=== PATIENT | male | born 1995 | race Caucasian/White ===

== ENCOUNTER 2021-03-18 16:15 | Day surgery (SDC) | payer BC, OTHER, SELFPAY ==
--- NOTE | ~2021-03-18 | FL_ITS ---
EXAMINATION: XR FLUOROSCOPY WITH IMAGES CLINICAL INFORMATION: Kidney stones. COMPARISON: None. TECHNIQUE: Fluoroscopy performed by Dr. Paco Lopez. Fluoroscopy time: 46 seconds DAP: 6.30 mGycm2 Images: 2 FINDINGS: There is contrast opacifying the left kidney pelvis and some of the midpole calyces. Subsequent image reveals a left internal ureteral stent with its tip in the kidney pelvis. FL/FL guidance in OR IMPRESSION: There is retrograde opacification of kidney pelvis with subsequent insertion of left internal ureteral stent. The proximal end of the stent appears to be in the kidney pelvis. The distal end is not in the [id number].
[2021-03-18 16:46] VITALS: BP 134/99; PULSE 93; RESP 16; TEMP 36.5; O2SAT 99
[2021-03-18 16:57] VITALS: BMI 17.0
--- NOTE | 2021-03-18 17:41 | MHC.SHP ---
Pre-Procedural Eval Section B Chief Complaint: Presence of urogenital implants Details of Present Illness: right flank pain. Imaging with right hydronephrosis. prior imaging with mild hydronephrosis. Relevant Family History (Specify if Yes): No Relevant Social History: None Present Medications: None Medical History: No relevant PMH History of Previous Operations: No relevant previous surgery Allergies: Allergies Allergy/AdvReac Type Severity Reaction Status Date / Time No Known Allergies Allergy Verified 03/18/21 17:02 Review of Systems Sugical H&P ROS: Negative: Constitution, Cardiovascular, Respiratory, Neurological, Psychiatric, Hem-Onc, Allergic/Immunologic, Gastrointestinal, Genitourinary, Musculoskeletal, Integumentary, Endocrine and Eyes/Ears/Nose/Throat Exam Surgical H&P Exam: Normal: HEENT, Normal: Heart, Normal: Lungs, Normal: Extremities, Normal: Abdomen, Normal: Skin and Normal: Neurological Plan Diagnosis/Plan: Unchanged ( Cystoscopy, right retrograde, right stent placement) I have reviewed the history and physical and performed a pertinent physical examination on my patient. No changes have occurred unless specified.
[2021-03-18] MEDS: levoFLOXacin 500 MG TABLET PO (18:07)
--- NOTE | 2021-03-18 20:43 | P.CONAN_ITS ---
[facility] Active Problems Active Problems: All Active Problems (Updated 03/18/21 @ 16:58 by Leila Bell RN) Hydroureteronephrosis (Acute) Past Medical History Medical History Anxiety Social History Social History Patient Tobacco Use Status: Never used Tobacco Use of substances other than those prescribed or required for medical reasons: No Are you DNR?: No Advance Directives: No Advance Directives Information Provided: No Advance Directives on File: No Recently lost weight without trying: No Meds Allergies Allergy/AdvReac Type Severity Reaction Status Date / Time No Known Allergies Allergy Verified 03/18/21 17:02 Home Medications Medication Instructions Recorded Confirmed Last Taken Type escitalopram oxalate 1 tab PO DAILY 03/18/21 03/18/21 03/11/21 History Exam Exam Date and Time: March 18, 20212042 Height,Weight and Vital Signs: Height 6 ft 4 in Weight 63.503 kg Last Vital Signs Temp 97.7 F 03/18/21 16:46 Pulse 93 03/18/21 16:46 Resp 16 03/18/21 16:46 BP 134/99 H 03/18/21 16:46 Pulse Ox 99 03/18/21 16:46 Airway Mallampati Class: II TM Dist: >3cm Neck ROM: Full
--- NOTE | 2021-03-18 21:21 | W.PM.OPN ---
Operative Note Operative Note Date of Service: 03/18/21 Narrative: PreOperative Diagnosis: right hydronephrosis Post Operative Diagnosis: right hydronephrosis possible UPJ obstruction Procedure: cystoscopy with right retrograde and right stent placement Surgeon: Dr Paco Lopez Anesthesia: sedation Indications for procedure: hydronephrosis found on imaging. Occasional flank discomfort. Recommend stent placement in order to assess relative renal function. Procedure: After informed consent was verified the patient was brought to the operating room and placed in a supine position. anesthesia was administered per protocol. Patient was placed in a modified dorsal lithotomy position after use prepped draped in a sterile fashion. Safety pause time-out was performed. Antibiotics being given. Twenty-two Yemeni cystoscope was inserted. Right retrograde office cannulated and retrograde examination performed. Appeared to be deviation of the proximal portion of the right ureter with a corkscrew before entering a dilated collecting system. A sensor guidewire was navigated into the collecting system and the redundant ureter was straightened. A 6 [place]i by 28 cm double-J catheter was easily placed and good coil seen within the renal pelvis in the bladder. He tolerated procedure well was transferred in stable condition to the recovery area. Pathology: None Drains: 6 Yemeni by 22 cm stent
[2021-03-18 21:28] VITALS: BP 121/68; PULSE 72; RESP 15; TEMP 36.5; O2SAT 97
[2021-03-18 21:33] VITALS: BP 124/77; PULSE 69; RESP 17; O2SAT 94
[2021-03-18] MEDS: Phenazopyridine HCL 100 MG TABLET PO (21:40)
[2021-03-18 21:43] VITALS: BP 125/85; PULSE 81; RESP 16; TEMP 36.3; O2SAT 98
[2021-03-18 21:55] VITALS: BP 123/81; PULSE 70; RESP 15; O2SAT 99
== END 2021-03-18 22:13 | disposition home or self-care (01) ==
PROVIDERS: PCP Internal Medicine; Visit Provider Urology
PROC: (CPT 52332; principal; 2021-03-18 18:20)
DX: N13.30 Unspecified hydronephrosis (principal); R10.9 Unspecified abdominal pain; Z79.899 Other long term (current) drug therapy
CPT/HCPCS: 52332; C1758; C1769; C2617; J1100; J1885; J2250; J3010; Q9967

== ENCOUNTER → 2021-04-09 12:54 | Outpatient (REF) | payer BC, OTHER, SELFPAY ==
--- NOTE | ~2021-04-09 | NM_ITS ---
EXAMINATION: RENAL DYNAMIC IMAGING STUDY WITH LASIX CLINICAL INFORMATION: Hydronephrosis. COMPARISON: No previous study is available for comparison. TECHNIQUE: Serial gamma scintillation camera images were obtained over the posterior trunk during the initial transit and subsequent distribution of a bolus intravenous injection of 10 mCi of Tc-99m DTPA. At 30 minutes later, 34 mg of Lasix was administered intravenously and an additional 30 minutes of images obtained. FINDINGS: Initial rapid sequence images show prompt perfusion to the left kidney but mildly diminished perfusion to the right kidney which is significantly smaller than the left. On the flow images, left kidney is not well from the immediately adjacent spleen. Subsequent sequential static images obtained up to 30 minutes show concentration and the left kidney an mildly diminished concentration and the right kidney. Excretory function is visualized bilaterally by 3 to 4 minutes post injection. At 30 minutes postinjection there is good visualization of the urinary bladder, although this is partially outside the [id number]. There is only minimal retention in the left renal pelvis but there is moderate retention in the right renal collecting system and this appears mildly dilated. The most prominent retention at this time on the right is in an upper pole calyx. Following Lasix administration, there is prompt washout of the small amount of retained activity in the left kidney. Washout on the right is slightly slower, but at the end of the study there is no significant retained activity in the left renal pelvis and only very minimal retention on the right. A full urinary bladder is visualized at this time. The T-1/2 washout times following Lasix administration are: Left 4.7 minutes and right 8.2 minutes. The relative function of the two kidneys based on the 2-3 minute images are: Left 67% and right 33%. NM/NM renal flow w pharm int IMPRESSION: LEFT KIDNEY: Normal perfusion and function. No hydronephrosis or outflow obstruction. RIGHT KIDNEY: Moderately diminished perfusion and function compared to the left kidney. Mild hydronephrosis is present, but significant outflow obstruction is not present.
== END ==
LOC: HO.NUCMED 12:54
PROVIDERS: Visit Provider Urology
DX: N13.30 Unspecified hydronephrosis (principal)
CPT/HCPCS: 78708; A9539; J1940

== ENCOUNTER → 2021-04-24 10:49 | Outpatient (BNVA) | payer BC, OTHER, SELFPAY | PROVIDERS: PCP Internal Medicine; Visit Provider Urology ==

== ENCOUNTER → 2021-07-04 07:38 | Outpatient (REF) | payer BC, SELFPAY ==
--- NOTE | ~2021-07-04 | NM_ITS ---
EXAMINATION: RENAL DYNAMIC IMAGING STUDY WITH LASIX CLINICAL INFORMATION: Other obstructive defects of renal pelvis and ureter. Patient states recently had blood in urine 5 days ago. Stent now in right kidney, placed February,. COMPARISON: The prior study dated 04/09/2021 is available for comparison. TECHNIQUE: Serial gamma scintillation camera images were obtained over the posterior trunk during the initial transit and subsequent distribution of a bolus intravenous injection of 10 mCi of Tc-99m DTPA. At 30 minutes later, 32 mg of Lasix was administered intravenously and an additional 30 minutes of images obtained. FINDINGS: Initial rapid sequence images show prompt perfusion to both kidneys. The flow to the right kidney appears slightly diminished compared to the left. Subsequent sequential static images obtained up to 30 minutes show good concentration bilaterally, with slightly diminished concentration on the right compared to the left. There is evidence of excretory function bilaterally by 3 to 5 minutes post injection. Urinary bladder activity is well visualized by 10 minutes post injection in this progressively increases in intensity. At 30 minutes postinjection, there is mild retention and dilatation in the right renal collecting system, predominantly in the calyces. There is no dilatation or significant retention on the left with only faint visualization of a small amount of activity in the left renal pelvis. Following Lasix administration, there is prompt washout of the retained activity in both renal collecting systems. At the end of the study a very full urinary bladder is visualized and there is no abnormal retention in either renal collecting system. The T-1/2 washout times following Lasix administration there is 10.8 minutes on the right. There was insufficient retention at the time of Lasix administration to calculating meaningful T-1/2 washout time on the left. The relative function of the two kidneys based on the 2-3 minute images are: Left 55% and right 45%. Compared to the previous study dated 04/09/2021, there has been a significant improvement in relative function of the right kidney compared to the left, previously showing 33% on the right and 67% on the left. The degree of hydronephrosis and sputum washout following Lasix administration are similar on the current and prior studies. NM/NM renal flow w pharm int IMPRESSION: LEFT KIDNEY: Normal perfusion and function. No hydronephrosis or outflow obstruction. RIGHT KIDNEY: Normal perfusion and function. The perfusion and function of this kidney is slightly diminished compared to the left, but well within normal limits. Mild hydronephrosis with no significant outflow obstruction is resident. Has been a significant improvement in function of the right kidney compared to 04/09/2021.
== END ==
LOC: HO.NUCMED 07:38
PROVIDERS: PCP Internal Medicine; Visit Provider Urology
DX: Q62.39 Other obstructive defects of renal pelvis and ureter (principal)
CPT/HCPCS: 78708; A9539; J1940

== ENCOUNTER → 2021-08-02 10:27 | Outpatient (BNVA) | payer BC, SELFPAY | PROVIDERS: PCP Internal Medicine; Visit Provider Urology ==

== ENCOUNTER 2021-08-19 12:39 | Day surgery (SDC) | payer BC, SELFPAY ==
[2021-08-13 11:37] VITALS: BMI 18.2
--- NOTE | 2021-08-16 12:23 | HO.ANESPROP2 ---
Documented by User: Jagruti Means NP 08/16/21 12:24 HPI - Anesthesia Eval Consult details Narrative: 26yo M for Right Cystoscopy, Ureteroscopy, Laser of ureteric stricture and stent placement s/p cysto/stent with MAC 02/2021 [facility] Active Problems Active Problems: All Active Problems (Updated 04/24/21 @ 11:48 by Paco Lopez MD) Hydroureteronephrosis (Acute) UPJ obstruction, congenital (Acute) Past Medical History Medical History Anxiety Surgical History Surgical History (Updated 08/13/21 @ 11:30 by Feli Richardson RN) History of cystoscopy Social History Social History Household Members Other:: roommate Are you a primary housekeeper child care to a significant other at home: No Do you presently have visiting nurse or other home services: No Patient Tobacco Use Status: Never used Tobacco Use of substances other than those prescribed or required for medical reasons: No Have you been hit, kicked, punched, or otherwise hurt by someone within the past year? If so, by whom?: No Are you DNR?: No Advance Directives: No Advance Directives Information Provided: No Advance Directives on File: No Recently lost weight without trying: No Eating poorly because of decreased appetite: No Nutrition Risks: No Nutritional Risk Meds Allergies Allergy/AdvReac Type Severity Reaction Status Date / Time No Known Allergies Allergy Verified 08/13/21 11:27 Home Medications Medication Instructions Recorded Confirmed Last Taken Type escitalopram oxalate 20 mg tablet 1 tab PO DAILY 03/18/21 08/13/21 03/11/21 History Exam Exam Date and Time: August 16, 2021 1223 Height,Weight and Vital Signs: Height 6 ft 4 in Weight 68.039 kg Assessment and Plan Assessment Anesthesia Assessment: Chart Reviewed Documented by User: Feliz Juan 08/19/21 17:07 HPI - Anesthesia Eval Consult details Narrative: 26yo M for Right Cystoscopy, Ureteroscopy, Laser of ureteric stricture and stent removal and possible placement . s/p cysto/stent with MAC 02/2021 [facility] Past Medical History Medical History Anxiety Functional capacity: independent ambulation Family History Family history of problems with anesthesia: No Surgical History Surgical History (Updated 08/13/21 @ 11:30 by Feli Richardson RN) History of cystoscopy History of Problems with Anesthesia: No Social History Social History Household Members Other:: roommate Are you a primary housekeeper child care to a significant other at home: No Do you presently have visiting nurse or other home services: No Patient Tobacco Use Status: Never used Tobacco Use of substances other than those prescribed or required for medical reasons: No Have you been hit, kicked, punched, or otherwise hurt by someone within the past year? If so, by whom?: No Are you DNR?: No Advance Directives: No Advance Directives Information Provided: No Advance Directives on File: No Recently lost weight without trying: No Eating poorly because of decreased appetite: No Nutrition Risks: No Nutritional Risk Meds Allergies Allergy/AdvReac Type Severity Reaction Status Date / Time No Known Allergies Allergy Verified 08/13/21 11:27 Home Medications Medication Instructions Recorded Confirmed Last Taken Type escitalopram oxalate 20 mg tablet 1 tab PO DAILY 03/18/21 08/13/21 03/11/21 History Exam Airway Mallampati Class: I TM Dist: >3cm Neck ROM: Full Loose/Missing/Broken Teeth: No Heart: rrr Lungs: b/l breath sounds Assessment and Plan Final Anesthetic Review Family History of Problems with Anesthesia: No History of Problems with Anesthesia: No ASA Class: II Final Preanesthetic Review: Meds/Allgs Chart Reviewed and Anes Risks/Benef Reviewed Patient Risk: Intermediate Procedure Risk: Intermediate Anesthetic Plan Anesthetic Plan: GA and MAC: Disposition: Standard PACU
--- NOTE | ~2021-08-19 | FL_ITS ---
EXAMINATION: XR FLUOROSCOPY WITH IMAGES CLINICAL INFORMATION: Ureteral stricture. Stent removal and placement COMPARISON: Fluoroscopic spot view 03/18/2021 TECHNIQUE: Fluoroscopy performed by Dr. Paco Lopez. Fluoroscopy time: 0.7 minutes Cumulative Dose: 6.49 mGy Images: 3 FINDINGS: There is a right ureteral stent in position. FL/FL guidance in OR IMPRESSION: Fluoroscopy for urologic procedure.
[2021-08-19 13:15] VITALS: BP 140/90; PULSE 104; RESP 18; TEMP 36.9; O2SAT 96
[2021-08-19] MEDS: Lactated Ringers 1,000 ML 100 ML IVCONT (13:29)
--- NOTE | 2021-08-19 16:33 | PC.NURSE ---
report to keerthi in pacu pt moved to pacu
--- NOTE | 2021-08-19 18:00 | MHC.SHP ---
Pre-Procedural Eval Section A Date of Service: 08/19/21 The patient is an INPATIENT: No Changes since office visit: Yes Cold of Flu in the past 2 weeks, Yes New Medical Problems, Yes Changes in Medication and Yes Patient answered all questions The History & Physical has been completed within 30 days and I have reviewed it.: No Section B Chief Complaint: hydronephrosis Details of Present Illness: right UPJ obstruction - cystoscopy, removal of right stent, right ureteroscopy with laser UPJ, stent placement Relevant Family History (Specify if Yes): No Relevant Social History: None Present Medications: see Short Stay Collaborative assessment Medical History: No relevant PMH History of Previous Operations: Relevant previous surgery/procedure and date(s) Allergies: Allergies Allergy/AdvReac Type Severity Reaction Status Date / Time No Known Allergies Allergy Verified 08/13/21 11:27 Review of Systems Sugical H&P ROS: Negative: Constitution, Cardiovascular, Respiratory, Neurological, Psychiatric, Hem-Onc, Allergic/Immunologic, Gastrointestinal, Genitourinary, Musculoskeletal, Integumentary, Endocrine and Eyes/Ears/Nose/Throat Exam Surgical H&P Exam: Normal: HEENT, Normal: Heart, Normal: Lungs, Normal: Extremities, Normal: Abdomen, Normal: Skin and Normal: Neurological Plan Diagnosis/Plan: Unchanged ( cystoscopy, ureteroscopy with laser of stricture, stent placement on right side) I have reviewed the history and physical and performed a pertinent physical examination on my patient. No changes have occurred unless specified.
--- NOTE | 2021-08-19 19:30 | P.OP_ITS ---
Operative Note Operative Note Date of Service: 08/19/21 Narrative: PreOperative Diagnosis: right UPJ stricture Post Operative Diagnosis: right UPJ stricture Procedure: - cystoscopy, removal of right stent, right retrograde - right ureteroscopy, laser of UPJ stricture - right stent placement Surgeon: Dr Paco Lopez Anesthesia: General Indications for procedure: 26-year-old male. Had been found with hydronephrosis on the right side. Stent had been placed. He had presumed right UPJ stricture. No evidence of crossing vessel in imaging. Creatinine normalized with stent. nuclear medicine study normalized with increase of right kidney contribution from 30 % to 45%. Presents today for incision of right UPJ redundant tissue. Procedure: After informed consent was verified patient was brought to the operating placed in supine position. Anesthesia was administered per protocol. Patient was placed in modified dorsal lithotomy position and prepped and draped in a sterile fashion. Safety pause time-out and side of surgery confirmed. Antibiotics confirmed. A 22 [place] cystoscope inserted per urethra. Stent was encountered in bladder. This was grasped and removed the meatal opening. Wire was placed inside an up to level renal pelvis. Stent was removed. Retrograde examination through ureteric catheter was performed showing narrowing at UPJ. Sensor guidewire be placed up to renal pelvis. Rigid ureteral scope was placed alongside wire. A 2nd wire was placed through the scope to allow it to be advanced up to the level the renal pelvis. There was clearly redundant tissue with a lip at the UPJ area. Using a 360 micron laser fiber the laser was used on soft tissue settings to make an incision in the posterior lateral aspect. This opened the lip substantially. Incision was taken through mucosa in down through the wall of the ureter into surrounding fatty tissue. This was visible throughout with the ureteral scope. This was not needed to be brought back very far into the distal portion of the ureter as the narrowing was quite tight at the top of the right ureter. Once this was successfully opened we were able to remove the ureteral scope. An AccuSize stent which is tapered was placed over the wire and with the cystoscope positioned across the UPJ. This sat well within the bladder as well. Bladder was emptied in its entirety. He tolerated procedure well, was extubated in the operating room and transferred in stable condition to the recovery area. Pathology: UPJ redundant stricture Drains: AccuSize stent
[2021-08-19 19:40] VITALS: BP 110/74; PULSE 75; RESP 15; TEMP 36.4; O2SAT 99
[2021-08-19 19:45] VITALS: BP 115/84; PULSE 69; RESP 18; O2SAT 97
[2021-08-19 19:50] VITALS: BP 122/84; PULSE 68; RESP 18; O2SAT 97
[2021-08-19 19:55] VITALS: BP 121/65; PULSE 62; RESP 18; O2SAT 98
[2021-08-19 20:10] VITALS: BP 125/84; PULSE 66; RESP 18; TEMP 36.2; O2SAT 97
== END 2021-08-19 20:22 | disposition home or self-care (01) ==
PROVIDERS: PCP Internal Medicine; Visit Provider Urology
PROC: (CPT 52345; principal; 2021-08-19 14:00)
DX: Q62.39 Other obstructive defects of renal pelvis and ureter (principal); N13.30 Unspecified hydronephrosis; F41.9 Anxiety disorder, unspecified
CPT/HCPCS: 52345; 52332; C1769; J0330; J1100; J1956; J2405; J3010; Q9967

== ENCOUNTER → 2021-12-12 10:53 | Outpatient (BNVA) | payer BC, SELFPAY | PROVIDERS: PCP Internal Medicine; Visit Provider Urology | DX: Z13.89 Encounter for screening for other disorder (principal) ==

== ENCOUNTER 2021-12-23 12:15 | Day surgery (SDC) | payer BC, SELFPAY ==
[2021-12-17 12:18] VITALS: BMI 17.6
--- NOTE | 2021-12-20 12:10 | HO.ANESPROP2 ---
Documented by User: Jagruti Means NP 12/20/21 12:11 HPI - Anesthesia Eval Consult details Narrative: 26yo M for Cystoscopy & Stent Removal with retrograde,poss ureteroscopy s/p cysto, etc 07/2021 with [facility] 4 [facility] Active Problems Active Problems: All Active Problems (Updated 12/17/21 @ 12:20 by Chely Babcock RN) Hydroureteronephrosis (Acute) UPJ obstruction, congenital (Acute) Past Medical History Medical History (Updated 12/17/21 @ 12:20 by Chely Babcock RN) Anxiety COVID-19 vaccine series completed Family History Family history of problems with anesthesia: No Surgical History Surgical History (Updated 12/17/21 @ 12:03 by Chely Babcock RN) History of cystoscopy Hx of cystoscopy History of Problems with Anesthesia: No Social History Social History Household Members Other:: roomate Are you a primary career development coordinator/teacher to a significant other at home: No Do you presently have visiting nurse or other home services: No Patient Tobacco Use Status: Never used Tobacco Use of substances other than those prescribed or required for medical reasons: No Have you been hit, kicked, punched, or otherwise hurt by someone within the past year? If so, by whom?: No Are you DNR?: No Advance Directives: No Advance Directives Information Provided: Yes (brochure mailed) Advance Directives on File: No Recently lost weight without trying: No Eating poorly because of decreased appetite: No Nutrition Risks: No Nutritional Risk Poor oral hygiene: No Meds Allergies Allergy/AdvReac Type Severity Reaction Status Date / Time No Known Allergies Allergy Verified 12/12/21 10:55 Home Medications Medication Instructions Recorded Confirmed Last Taken Type No Known Home Meds 12/17/21 12/17/21 Unknown History Exam Exam Date and Time: December 20, 2021 1210 Height,Weight and Vital Signs: Height 6 ft 4 in Weight 65.771 kg Assessment and Plan Assessment Anesthesia Assessment: Chart Reviewed Final Anesthetic Review Family History of Problems with Anesthesia: No History of Problems with Anesthesia: No Documented by User: Rashmi Guy MD 12/23/21 13:00 [facility] Past Medical History Medical History (Updated 12/17/21 @ 12:20 by Chely Babcock, KEENAN) Anxiety COVID-19 vaccine series completed Surgical History Surgical History (Updated 12/17/21 @ 12:03 by Chely Babcock RN) History of cystoscopy Hx of cystoscopy Social History Social History Household Members Other:: roomate Are you a primary career development coordinator/teacher to a significant other at home: No Do you presently have visiting nurse or other home services: No Patient Tobacco Use Status: Never used Tobacco Use of substances other than those prescribed or required for medical reasons: No Have you been hit, kicked, punched, or otherwise hurt by someone within the past year? If so, by whom?: No Are you DNR?: No Advance Directives: No Advance Directives Information Provided: Yes (brochure mailed) Advance Directives on File: No Recently lost weight without trying: No Eating poorly because of decreased appetite: No Nutrition Risks: No Nutritional Risk Poor oral hygiene: No Meds Allergies Allergy/AdvReac Type Severity Reaction Status Date / Time No Known Allergies Allergy Verified 12/12/21 10:55 Home Medications Medication Instructions Recorded Confirmed Last Taken Type No Known Home Meds 12/17/21 12/17/21 Unknown History Exam Airway Mallampati Class: II TM Dist: >3cm Neck ROM: Full Heart: rrr Lungs: cta Assessment and Plan Assessment Anesthesia Assessment: Anesthesia Plan Discussed and Chart Reviewed Final Anesthetic Review NPO: Yes ASA Class: II Final Preanesthetic Review: No Changes in Pt Med Stat, Meds/Allgs Chart Reviewed and Consent Obtained/Reviewed Patient Risk: Intermediate Procedure Risk: Intermediate Anesthetic Plan Anesthetic Plan: GA Disposition: Standard PACU
--- NOTE | ~2021-12-23 | FL_ITS ---
EXAMINATION: XR FLUOROSCOPY WITH IMAGES CLINICAL INFORMATION: History of kidney stones and ureteral stricture. COMPARISON: Previous fluoroscopic exams February and July 2021. TECHNIQUE: Fluoroscopy performed by Dr. Paco Lopez. Fluoroscopy time: 23 seconds Cumulative dose: 2.9 mGy Images: 4 FINDINGS: Initial image demonstrates contrast opacification of the right renal collecting system and proximal ureter. There is mild right hydronephrosis. There is question of a narrowing or stricture in the right UPJ region. Later images demonstrate a catheter in the right ureter and collecting system. FL/FL guidance in OR IMPRESSION: Fluoroscopy guidance for urologic procedure.
[2021-12-23 12:28] VITALS: BP 120/77; PULSE 84; RESP 16; TEMP 37.1; O2SAT 96
[2021-12-23] MEDS: Lactated Ringers 1,000 ML 100 ML IVCONT (12:46)
[2021-12-23] MEDS: levoFLOXacin 500 MG TABLET PO (13:05)
--- NOTE | 2021-12-23 13:18 | MHC.SHP ---
Pre-Procedural Eval Section A Date of Service: 12/23/21 The patient is an INPATIENT: No Changes since office visit: No Cold of Flu in the past 2 weeks, No New Medical Problems, No Changes in Medication and No Patient answered all questions The History & Physical has been completed within 30 days and I have reviewed it.: Yes Section B Chief Complaint: hydronephrosis Details of Present Illness: cystoscopy, stent removal after UPJ incision Relevant Family History (Specify if Yes): No Present Medications: see Short Stay Collaborative assessment Medical History: No relevant PMH History of Previous Operations: Relevant previous surgery/procedure and date(s) Allergies: Allergies Allergy/AdvReac Type Severity Reaction Status Date / Time No Known Allergies Allergy Verified 12/12/21 10:55 Review of Systems Sugical H&P ROS: Negative: Constitution, Cardiovascular, Respiratory, Neurological, Psychiatric, Hem-Onc, Allergic/Immunologic, Gastrointestinal, Genitourinary, Musculoskeletal, Integumentary, Endocrine and Eyes/Ears/Nose/Throat Exam Surgical H&P Exam: Normal: HEENT, Normal: Heart, Normal: Lungs, Normal: Extremities, Normal: Abdomen, Normal: Skin and Normal: Neurological Plan Diagnosis/Plan: Unchanged ( cystoscopy, right stent removal, right retrograde, right ureteroscopy) I have reviewed the history and physical and performed a pertinent physical examination on my patient. No changes have occurred unless specified.
--- NOTE | 2021-12-23 13:50 | W.PM.OPN ---
Operative Note Operative Note Date of Service: 12/23/21 Narrative: PreOperative Diagnosis: indwelling right stent after UPJ incision Post Operative Diagnosis: UPJ narrowing Procedure: 1. Cystoscopy with right stent removal 2. Right retrograde 3. right diagnostic ureteroscopy Surgeon: Dr Paco Lopez Anesthesia: general Indications for procedure: prior right UPJ incision. Here for removal of Accu size stent and confirmation of opening Procedure: After informed consent was verified the patient was brought to the operating room and placed in a supine position. anesthesia was administered per protocol. patient was placed in modified dorsal lithotomy position and prepped and draped in sterile fashion. Antibiotics being given. Twenty-two [place]ankan cystoscope inserted per urethra. No abnormality noted. Bladder was entered. Stent present. Stent grasped and removed. Retrograde examination performed on right side. Ureter open up till UPJ. Slight narrowing but dye easily enters renal pelvis and after removal of open-ended catheter dye flows back down into upper portion of ureter. Sensor guidewire placed up to the level renal pelvis Cystoscope removed and flexible ureteral scope placed over the wire into the renal pelvis. Under direct vision this was brought back to area with the prior incision was made. Was there was a small medial flap the lateral aspect was open and looking back up into the upper part of the ureter this was open as well. The flexible ureteral scope was removed. He tolerated the procedure well was extubated in operating room transferred in stable condition to the recovery area Pathology: Drains:
[2021-12-23 13:53] VITALS: BP 103/68; PULSE 66; RESP 16; TEMP 36.1; O2SAT 100
[2021-12-23 13:58] VITALS: BP 109/73; PULSE 68; RESP 14; O2SAT 99
[2021-12-23 14:03] VITALS: BP 102/73; PULSE 71; RESP 13; O2SAT 98
[2021-12-23 14:08] VITALS: BP 106/73; PULSE 72; RESP 16; TEMP 36.4; O2SAT 98
== END 2021-12-23 15:05 | disposition home or self-care (01) ==
PROVIDERS: PCP Internal Medicine; Visit Provider Urology
PROC: (CPT 52310; principal; 2021-12-23 14:20)
DX: N13.30 Unspecified hydronephrosis (principal); Q62.39 Other obstructive defects of renal pelvis and ureter; Z46.6 Encounter for fitting and adjustment of urinary device
CPT/HCPCS: 52351; C1758; C1769; J1100; J2250; J2405; J3010; Q9967

== ENCOUNTER 2022-05-30 15:35 | Day surgery (SDC) | payer OTHER, SELFPAY ==
[2022-05-30] VITALS (9 sets, daily range): BP systolic 120–133; BP diastolic 77–94; PULSE 60–80; RESP 16; TEMP 36.6; O2SAT 98–99; BMI 18.8
--- NOTE | ~2022-05-30 | FL_ITS ---
EXAMINATION: XR FLUOROSCOPY WITH IMAGES CLINICAL INFORMATION: Urinary tract calculi, ureteral stricture. Right ureteral stent placement. COMPARISON: Fluoroscopic spot views 12/23/2021 TECHNIQUE: Fluoroscopy performed by Dr. Paco Lopez. Fluoroscopy time: 49 seconds. Cumulative Dose: 6.05 mGy. Images: 4. FINDINGS: There is some contrast in the right renal collecting system showing hydronephrosis. No extravasation of contrast. Final images show right ureteral stent in position with proximal and overlying renal collecting system and distal and overlying the urinary bladder. FL/FL guidance in OR IMPRESSION: Fluoroscopy for urologic procedure.
--- NOTE | 2022-05-30 15:40 | HO.ANESPROP2 ---
[facility] Active Problems Active Problems: All Active Problems (Updated 12/17/21 @ 12:20 by Chely Babcock RN) Hydroureteronephrosis (Acute) UPJ obstruction, congenital (Acute) Past Medical History Medical History Anxiety COVID-19 vaccine series completed Functional capacity: independent ambulation Family History Family history of problems with anesthesia: No Surgical History Surgical History History of cystoscopy Hx of cystoscopy History of Problems with Anesthesia: No Social History Social History Household Members Other:: roomate Are you a primary direct support professional caregiver to a significant other at home: No Do you presently have visiting nurse or other home services: No Patient Tobacco Use Status: Never used Tobacco Meds Allergies Allergy/AdvReac Type Severity Reaction Status Date / Time No Known Allergies Allergy Verified 12/12/21 10:55 Exam Exam Date and Time: May 30, 2022 1540 Assessment and Plan Final Anesthetic Review Family History of Problems with Anesthesia: No History of Problems with Anesthesia: No
--- NOTE | 2022-05-30 16:18 | HO.ANESPROP2 ---
[facility] Active Problems Active Problems: All Active Problems (Updated 12/17/21 @ 12:20 by Chely Babcock RN) Hydroureteronephrosis (Acute) UPJ obstruction, congenital (Acute) Past Medical History Medical History Anxiety COVID-19 vaccine series completed Functional capacity: independent ambulation Family History Family history of problems with anesthesia: No Surgical History Surgical History History of cystoscopy Hx of cystoscopy History of Problems with Anesthesia: No Social History Social History Household Members Other:: roomate Are you a primary urgent care technician to a significant other at home: No Do you presently have visiting nurse or other home services: No Patient Tobacco Use Status: Never used Tobacco Advance Directives: No Advance Directives Information Provided: Yes Meds Allergies Allergy/AdvReac Type Severity Reaction Status Date / Time No Known Allergies Allergy Verified 12/12/21 10:55 Exam Exam Date and Time: May 30, 2022 1618 Airway Mallampati Class: II TM Dist: >3cm Neck ROM: Full Heart: RRR Lungs: CTA Assessment and Plan Final Anesthetic Review Family History of Problems with Anesthesia: No History of Problems with Anesthesia: No ASA Class: II and Emergency Final Preanesthetic Review: No Changes in Pt Med Stat, Meds/Allgs Chart Reviewed, Consent Obtained/Reviewed and Anes Risks/Benef Reviewed Patient Risk: Low Procedure Risk: Low Anesthetic Plan Anesthetic Plan: GA Disposition: Standard PACU
--- NOTE | 2022-05-30 16:30 | MHC.SHP ---
Pre-Procedural Eval Section A Date of Service: 05/30/22 The patient is an INPATIENT: No Changes since office visit: No Cold of Flu in the past 2 weeks, No New Medical Problems, No Changes in Medication and No Patient answered all questions The History & Physical has been completed within 30 days and I have reviewed it.: No Section B Chief Complaint: stent placement Details of Present Illness: right recurrent hydro per nephrology, question cortical thinning, plan for stent Relevant Family History (Specify if Yes): No Relevant Social History: None Present Medications: see Short Stay Collaborative assessment Medical History: No relevant PMH History of Previous Operations: Relevant previous surgery/procedure and date(s) Allergies: Allergies Allergy/AdvReac Type Severity Reaction Status Date / Time No Known Allergies Allergy Verified 12/12/21 10:55 Review of Systems Sugical H&P ROS: Negative: Constitution, Cardiovascular, Respiratory, Neurological, Psychiatric, Hem-Onc, Allergic/Immunologic, Gastrointestinal, Genitourinary, Musculoskeletal, Integumentary, Endocrine and Eyes/Ears/Nose/Throat Exam Surgical H&P Exam: Normal: HEENT, Normal: Heart, Normal: Lungs, Normal: Extremities, Normal: Abdomen, Normal: Skin and Normal: Neurological Plan Diagnosis/Plan: Unchanged I have reviewed the history and physical and performed a pertinent physical examination on my patient. No changes have occurred unless specified.
[2022-05-30] MEDS: levoFLOXacin 500 MG TABLET PO (16:33)
--- NOTE | 2022-05-30 17:11 | P.OP_ITS ---
Operative Note Operative Note Date of Service: 05/30/22 Narrative: PreOperative Diagnosis: Right hydronephrosis Post Operative Diagnosis: Right hydronephrosis with recurrent UPJ scarring Procedure: Cystoscopy, right retrograde, right stent placement Surgeon: Dr Paco Lopez Anesthesia: Anesthesia Indications for procedure: Prior UPJ Accu size. Silent follow-up with recurrent right hydronephrosis. Found through nephrology. Dr. Shaw had requested stent placement 2 days ago. Procedure: After informed consent was verified the patient was brought to the operating room and placed in a supine position. Anesthesia was administered per protocol. The patient was placed in modified dorsal lithotomy position and prepped and draped in a sterile fashion. A safety pause time-out was performed. Laterality of procedure and antibiotics were confirmed, appropriate imaging was available A 22 Tristanian cystoscope was introduced per urethra. No abnormality was noted of urethra or bladder. Both ureteric orifices were seen in a normal position. The right ureter was cannulated with an open ended catheter and a retrograde examination was performed. Tightness of right UPJ with trickle of dye across area . A Sensor guidewire was placed under fluoroscopy and a good coil was seen within the renal pelvis. A 6 Tristanian variable length double J stent was advanced over the wire and up to the level of the renal pelvis under fluoroscopic and direct visualization. The stent was seen with appropriate coil within the renal pelvis and in the bladder after deployment. The patient tolerated the procedure well and was transferred in a stable condition to the recovery area. Pathology: UPJ tightening Drains: 6 Tristanian by variable length Cook stent
[2022-05-30] MEDS: Phenazopyridine HCL 100 MG TABLET PO (17:50)
== END 2022-05-30 18:56 | disposition home or self-care (01) ==
PROVIDERS: PCP Internal Medicine; Visit Provider Urology
PROC: (CPT 52332; principal; 2022-05-30 16:30)
DX: N13.0 Hydronephrosis with ureteropelvic junction obstruction (principal)
CPT/HCPCS: 52332; C1758; C1769; C2617; J1100; J2250; J2405; J3010; Q9967